=== PATIENT | male | born 1965 | race Caucasian/White ===

== ENCOUNTER → 2017-12-09 | Outpatient (CLI) | payer OTHER | LOC: FIMAGING 08:53 | PROVIDERS: ATTEND Internal Medicine | DX: E01.0 Iodine-deficiency related diffuse (endemic) goiter (principal); R53.83 Other fatigue ==

== ENCOUNTER → 2018-05-10 | Outpatient (CLI) | payer OTHER | LOC: GIMAGING 11:35 | DX: R07.89 Other chest pain (principal) | CPT/HCPCS: 71100-PO ==